=== PATIENT | female | born 1990 | race Caucasian/White ===

== ENCOUNTER 2017-07-13 21:26 | Emergency (ER) | payer OTHER ==
[~2017-07-13 21:26] MED LIST: NORE-25 PO
[2017-07-13] MEDS ORDERED: LEVO50TA86 PO (21:33)
--- NOTE | 2017-07-13 21:36 | ER Report ---
History and Physical Time Seen By MD: 21:36 Hx. of Stated Complaint: PT HAD LIGHT FIXTURE FALL ON HER HEAD ABOUT ONE HOUR. HPI/ROS CHIEF COMPLAINT: head injury with scalp laceration HISTORY OF PRESENT ILLNESS: This is a 27 year old female. About 1 hour ago, a light fixture fell and hit her on the head; wrong place at the wrong time. About 8 ft above the head and 10 lbs. Hit front of head and chipped her front lower incisor. Did not lose consciousness. Has a headache. No vision changes. No dizziness. No nausea. Allergies: Coded Allergies: No Known Drug Allergies (Verified , 07/13/17) Home Meds Reported Medications Levothyroxine Sodium (LEVOTHYROXINE SODIUM) 50 Mcg Tablet, 50 MCG PO QDAY, TAB 07/13/17 Discontinued Reported Medications Noreth A-Et Estra/Fe Fumarate (Junel Fe 1.5/30 Tablet) 1 Tab Tablet, 1 TAB PO, 0 Refills 11/25/09 Reviewed Nurses Notes: Yes Constitutional Vital Sign - Last 24 Hours 07/13/17 07/13/17 21:33 22:22 Temp 98.2 Pulse 82 71 Resp 14 14 B/P (MAP) 149/83 130/71 (90) Pulse Ox 93 93 O2 Delivery Room Air Room Air Physical Exam General Appearance: Alert, no acute distress. Eyes: Pupils equal and round, no injection. Pupils reactive to light. Extraocular movements are intact. ENT: Normal oral mucosa. Moist mucous membranes. Tympanic membranes are normal. Neck: Neck is supple. Neuro: no focal deficits. Alert and oriented x4. Musculoskeletal: No tenderness or injuries. Skin: laceration on front scalp extending just beyond the hairline onto forehead , about 3 cm. DIFFERENTIAL DIAGNOSIS: After history and physical exam differential diagnosis was considered for scalp laceration. Head injury, but no concern at this time about intracranial injury, cannot rule out mild concussion. Medical Decision Making ED Course/Re-evaluation ED Course No imaging. Will observe tonight for any problems and gave instructions on what to watch for that would indicate need to return for re-evaluation with CT scan. Procedure: Laceration Repair Verbal consent from patient after discussing repair options, risks and benefits. Wound cleaned extensively with Hibiclens and saline. Anesthesia: Local 1% lidocaine without epinephrine and 0.5% bupivacaine without epinephrine. Location: Frontal scalp extending on the forehead. Length: 3 cm. Wound repair: 4 liss in the scalp hairline area and 2 sutures on the area that is on the forehead. The wound repair was simple and performed by myself. Wound care instructions discussed. Sutures/liss need to be removed in 7 days. Tetanus booster given. Decision to Disposition Date: Jul 13, 2017 Decision to Disposition Time: 22:11 Depart Departure Latest Vital Signs Vital Signs Date Time Temp Pulse Resp B/P (MAP) Pulse Ox O2 Delivery O2 Flow Rate FiO2 07/13/17 22:22 71 14 130/71 (90) 93 Room Air 07/13/17 21:33 98.2 Impression: Primary Impression: Scalp laceration Condition: Improved Disposition: HOME OR SELF-CARE Referrals: MALVIN HOWE (PCP) Patient Instructions: Concussion (ED), Laceration (ED) Additional Instructions: Wound Care: Wash the wound once a day with soap and water. Dry the wound and apply a small amount of antibiotic ointment with a clean dressing. If the dressing becomes wet or dirty, repeat cleaning and dressing as above. No soaking the wound; no swimming. Stitches need to be removed in 7 days. Pain Control: Use Tylenol or ibuprofen for pain. Using and ice pack can help reduce swelling. Concussion symptoms include: headache, nausea/vomiting, dizziness, difficulty concentrating, blurred vision. These symptoms can be mild or moderate. If symptoms become severe, follow-up evaluation is needed. Avoid any heavy physical activity and avoid any activities that may cause repeat head injury. Concussion symptoms can last for days or weeks. There is no way to predict how long these will last. It is okay to sleep after a head injury. Just make sure someone is with you for tonight and checks on you every few hours to make sure you are still doing okay. Return to the ER for any altered mental status changes or confusion, or if one pupil is larger than the other, or if there are other abnormal or severe changes. Use Tylenol or Ibuprofen as needed for pain. Do not take any medicines containing aspirin for several days. Problem Qualifiers Primary Impression: Scalp laceration Encounter type: initial encounter Qualified Codes: S01.01XA - Laceration without foreign body of scalp, initial encounter PHOEBE MCKEON MD Jul 13, 2017 21:36
[2017-07-13] MEDS ORDERED: DIPHTH/TETANUS/ACEL. PERTUSSIS IM ONLY ONE (21:40)
[2017-07-13 22:22] VITALS: BP 130/71
== END 2017-07-13 22:25 | disposition home or self-care (01) ==
LOC: ER 21:34
DX: S01.01XA Laceration without foreign body of scalp, initial encounter (principal); W20.8XXA Other cause of strike by thrown, projected or falling object, initial encounter
CPT/HCPCS: 90471; 90715; 99282